=== PATIENT | female | born 1985 | race Caucasian/White ===

== ENCOUNTER 2016-06-19 19:36 | Emergency (ER) | payer OTHER ==
[~2016-06-19] VITALS: Ht 170.2 cm; Wt 56.7 kg
[~2016-06-19 19:36] MED LIST: IBUPROFEN800 M1 PO; IBUPROFEN800 MG PO; MACROBID100 MG PO; PRENATAL VITAMI1 TA4 PO
[2016-06-19 19:43] VITALS: BP 143/82
[2016-06-19] MEDS ORDERED: VISTARIL50 M1 PO (20:15)
--- NOTE | 2016-06-19 20:15 | ED SKIN/ALLERGY COMPLAINT ---
History of Present Illness General Chief Complaint: General Adult Stated Complaint: RASH ON BOTH PALMS OF HANDS, SWELLING IN MOUTH Source: patient, old records Exam Limitations: no limitations Vital Signs & Intake/Output Vital Signs & Intake/Output Vital Signs Date Time Temp Pulse Resp B/P Pulse O2 O2 Flow FiO2 Ox Delivery Rate 06/19 1942 98.9 89 18 143/82 98 Room Air Room Air Allergies Coded Allergies: cephalexin (Intermediate, N/V, DIARRHEA 04/07/16) Reconcile Medications Etonogestrel/Ethinyl Estradiol (Nuvaring Vaginal Ring) 0.12 MG -0.015 MG/24 HR VAG.RING 1 EACH VG Q30D BC (Reported) use for 3 weeks, skip for 1 week Hydroxyzine Pamoate (Vistaril) 50 MG CAPSULE 1 CAP PO TID PRN itching Ibuprofen 800 MG TABLET 800 MG PO Q6P PRN PAIN SCALE 4-6 (MODERATE) Triage Note: TRIAGE: 30 Y/O FEMALE PRESENTS C/O RASH TO PALMAR SURFACES, MOUTH, AND TO LEGS SINCE MONDAY. "SUPER ITCHY". REPORTS SON HAD HAND, FOOT, MOUTH 1 MONTH AGO. Triage Nurses Notes Reviewed? yes : No Patient currently breastfeeds: No HPI: 30-year-old female no medical history presents complaining of a rash to the palmar surfaces of her hands and mouth for the past 5 days. She reports her son recently had gmbk-mmot-hzd-mouth disease and states it looks similar. She states that is been extremely itchy however she's only taken one dose of Benadryl. She denies any other sick contacts no fever no chills no sore throat difficulty breathing nausea vomiting or abdominal pain no chest pain. There are no other modifying factors or associated symptoms. Past History Travel History Traveled to [place] past 21 day No Medical History Any Pertinent Medical History? 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 No Review of Systems Review of Systems Constitutional: Reports: see HPI. All Other Systems: Reviewed and Negative Comments Review of systems: See HPI, All other systems negative. Constitutional, no chills no fever, no malaise HEENT: No visual changes no sore throat no congestion Cardiovascular: No chest pain , no palpitation Skin, see hpi Respiratory: No dyspnea no cough no sputum GI: No nausea no vomiting, no diarrhea : No dysuria Muscle skeletal: No joint pain, no joint swelling, no back pain, no neck pain, Neurologic: No numbness n no headache Psych: No stress Heme/endocrine: No bruising no bleeding Immunology: No lymphadenopathy Physical Exam Physical Exam General Appearance: well developed/nourished, no apparent distress, alert, awake , comfortable Comments: Well-developed well-nourished patient in no apparent distress. Head/Face: Atraumatic, no maxillary/frontal sinus tenderness, no facial swelling Eyes: PERRL, EOMI, no conjunctival injection. No nystagmus Ear:External auditory canal and Tympanic membranes clear, no erythema, no FB. Nose: atraumatic.Normal inspection Throat: Moist mucous membranes.Pharynx normal. No pharyngeal erythema/exudate seen. No stridor/drooling or assymetry. No swelling or edema. No erythema no exudate no trismus no uvular displacement Neck: Supple, no lymphadenopathy, FROM Back: FROM, Nontender Cardiovascular: Regular rate and rhythms no murmurs rubs or gallops, Respiratory: Chest nontender.There were no bony deformities, no asymmetry. No respiratory distress. Patient speaking in full complete sentences. Breath sounds clear to auscultation bilaterally: NO W/R/R Extremities: full range of motion Neuro: Alert and oriented x3 Skin: Warm & dry; papular vesicular rash noted to the palmar surface of the hand and posterior pharynx, Psych: Mood affect normal, normal memory normal judgment. Progress Differential Diagnosis: abscess/cellulitis, allergic reaction, angioedema, contact dermatitis, shingles, varicella, coxsackie, shingles Plan of Care: Discussed with patient need for supportive care, Motrin as needed Vistaril was provided for itching. They feel comfortable plan cleared for discharge Departure Departure Time of Disposition: 2013 Disposition: HOME OR SELF CARE Condition: Stable Clinical Impression Primary Impression: Coxsackie virus infection Referrals: PATIENT HAS NO PRIMARY CARE DR (PCP/Family) Referred to [facility] as new patient No Additional Instructions: Vistaril as needed for itching. This may make you drowsy. Supportive care Tylenol Motrin if you have pain Departure Forms: Customer Survey General Discharge Information Prescriptions: Current Visit Scripts Hydroxyzine Pamoate (Vistaril) 1 CAP PO TID PRN itching #15 CAP
[2016-06-19] MEDS ORDERED: NUVARING VAGIN1 EACH VG (20:24)
[2016-11-23] MEDS ORDERED: SINUS 12-HOUR120 MG PO (20:50)
[2016-11-23] MEDS ORDERED: CLARITIN10 M1 PO (20:51)
[2016-11-23] MEDS ORDERED: AFRIN30 ML NS (20:58)
[2016-11-23] MEDS ORDERED: AUGMENTIN 875-1 EACH PO (20:58)
== END 2016-06-19 20:25 ==
LOC: ERH 19:36
DX: B34.1 Enterovirus infection, unspecified (principal)